=== PATIENT | male | born 1955 | race Caucasian/White ===

== ENCOUNTER 2016-06-28 12:38 | Day surgery (SDC) | payer OTHER ==
[2016-06-28] MEDS ORDERED: ASPIRIN EC 325 MG TAB PO ONE (12:53)
[2016-06-28] MEDS ORDERED: diphenhydrAMINE 25 MG CAP PO ONE (12:53)
[2016-06-28] MEDS ORDERED: NS 1,000 ML IV ONE (12:53)
[2016-06-28] MEDS ORDERED: FAMOTIDINE 20 MG TAB PO ONE (12:53)
[2016-06-28] MEDS ORDERED: DIAZEPAM 5 MG TAB PO ONE (12:53)
--- NOTE | 2016-06-28 13:13 | CPEKG ---
Heart Rate: 79 RR Interval: 759 P-R Interval: 192 QRSD Interval: 96 QT Interval: 396 QTC Interval: 455 P [place]: 48 QRS [place]: 26 T Wave [place]: 52 EKG Severity - NORMAL ECG - EKG Impression: SINUS RHYTHM Electronically Signed By: Marco Antonio Hogan 28-Jun-2016 14:58:14
[2016-06-28 13:38] LABS: % IMMATURE GRANULYOCYTES 0.2 % (0.0-1.1); ABSOLUTE IMMATURE GRANULOCYTES 0.01 10^3/uL (0.00-0.10); ADD DIFF? NO; ADD MORPH? NO; ADD SCAN? NO; ATYPICAL LYMPHOCYTE FLAG 20 (0-99); FRAGMENT RBC FLAG 0 (0-99); HEMATOCRIT 44.7 % (40.0-51.0); HEMOGLOBIN 13.9 g/dL (13.7-17.5); LEFT SHIFT FLG 0 (0-99); LIPEMIA HEMOLYSIS FLAG 80 (0-99); MEAN CELL HEMOGLOBIN 24.1 pg (27.9-34.1); MEAN CELL HEMOGLOBIN CONCENTR. 31.1 g/dL (32.4-36.7); MEAN CELL VOLUME 77.5 fL (81.5-99.8); PLATELET CLUMPS FLAG 0 (0-99); PLATELET COUNT 235 10^3/uL (150-400); RED BLOOD CELL COUNT 5.77 10^6/uL (4.40-6.38)
[2016-06-28 13:45] LABS: PROTIME(PATIENT) 13.1 SEC (12.0-15.0)
[2016-06-28] MEDS ORDERED: MIDAZOLAM 2 MG/2 ML VIAL ONE ×2 (13:47→14:30)
[2016-06-28] MEDS ORDERED: LIDOCAINE 1% 30 ML SDV ONE ×2 (13:47→14:28)
[2016-06-28] MEDS ORDERED: fentaNYL 100 MCG/2 ML INJ ONE ×2 (13:47→14:30)
[2016-06-28] MEDS ORDERED: IOPAMIDOL (ISOVUE-370) 150 ML BTL IV ONE (13:47)
[2016-06-28 13:55] LABS: ANION GAP 10 mEq/L (8-16); CALCIUM 9.1 mg/dL (8.5-10.4); CARBON DIOXIDE 26 mEq/l (22-31); CHLORIDE 103 mEq/L (97-110); CHOLESTEROL 121 mg/dL (140-220); CHOLESTEROL/HDL RATIO 4.65 RATIO (1.00-4.97); GLOMERULAR FILTRATION RATE > 60; GLUCOSE 86 mg/dL (70-100); HIGH DENSITY LIPOPROTEIN 26 mg/dL (40-65); LDL/HDL RATIO 2.46 RATIO (1.00-3.64); LOW DENSITY LIPOPROTEIN 64 mg/dL (80-100); MAGNESIUM 1.9 mg/dL (1.6-2.3); NON-HIGH DENSITY LIPOPROTEIN 95 mg/dL (90-129); SODIUM 139 mEq/L (134-144); TRIGLYCERIDE 158 mg/dL (40-150); VERY LOW DENSITY LIPOPROTEINS 31 mg/dL (8-25)
--- NOTE | 2016-06-28 14:47 | PDDXCAT ---
Diagnostic Cath Note - . Date: 06/28/16 Intervention: None Indication: Progressive dyspnea on exertion with know coronary artery disease on the basis of cardiac catheterization last performed in 2004, r/u pulmonary hypertension. *Procedure 1. selective coronary angiography 2. left heart catheterization 3. left ventriculogram 4. right heart catheterization Access: Right femoral *Materials Left Heart Cath size: 6F Left Heart Cath materials: JR4, JL3.5, pigtail Right Heart Cath size: 7F Right Heart Cath Materials: PWP catheter *Findings-Left Heart Catheterization LM: The left main is ~7 mm in size and bifurcates into an LAD and circumflex system. There is no evidence of flow-limiting disease. LAD: The LAD is ~6 mm in size. There is no evidence of flow-limiting disease with VEL III flow throughout. LCX: The proximal left circumflex is ~5 mm in size. Maximal luminal stenosis is 40% in the proximal left circumflex. There is VEL III flow throughout. RCA: The RCA is dominant (gives rise to PDA and PLV branches) and is ~5.5 mm in size with a Carter's crook deformity. Maximal luminal stenosis of 20% with VEL III flow. Left Ventriculogram: No wall motion abnormalities were identified. The visualized portion of the thoracic aorta revealed three sinuses of Valsalva. There was no evidence of aneurysm or dissection. Ejection Fraction: 55% LVEDP: 13 mmHg *Findings-Right Heart Catheterization RA: 12/11/10 mmHg RV: 35/7/12 mmHg PA: 35/22/29 mmHg PAOP: 11/11/9 mmHg AO: 117/79/85 mmHg AO SAT = 96.1%; PA SAT = 73.7%; IVC SAT = 66.1%; CO: 5.74 L/min CI: 2.2 L/min/m^2 *Summary Complications: None Estimated blood loss: <50ml Closure method: Angioseal Assessment: [place] vessel non-flow limiting coronary artery disease with mild diffuse disease throughout consistent with atherosclerosis. There was normal ejection fraction and no wall motion abnormalities on LVG. Pulmonary artery pressure with expiration was 42 mmHg consistent with mild pulmonary hypertension with elevated right atrial pressure. The patient had snoring and apneic events consistent with obstructive sleep apnea. He should continue CPAP therapy. He should also continue daily Crestor at a dose of 10 mg daily. It is safe for the patient to participate on a routine moderate basis on the basis of this study in 1 week. It is likely the patient's progressive dyspnea is related to excess body weight and weight loss is recommended.
== END 2016-06-28 19:32 | disposition home or self-care (01) ==
LOC: FCATH 12:38
PROVIDERS: ATTEND Internal Medicine Cardiovascular Disease
PROC: B2111ZZ Fluoroscopy of Multiple Coronary Arteries using Low Osmolar Contrast (ICD-10-PCS; principal; 2016-06-28)
PROC: 4A023N8 Measurement of Cardiac Sampling and Pressure, Bilateral, Percutaneous Approach (ICD-10-PCS; principal; 2016-06-28)
PROC: B2151ZZ Fluoroscopy of Left Heart using Low Osmolar Contrast (ICD-10-PCS; principal; 2016-06-28)
DX: R06.02 Shortness of breath (principal); G47.33 Obstructive sleep apnea (adult) (pediatric); E66.01 Morbid (severe) obesity due to excess calories; I25.10 Atherosclerotic heart disease of native coronary artery without angina pectoris; I10 Essential (primary) hypertension; E78.5 Hyperlipidemia, unspecified
CPT/HCPCS: C1760; J1644; J2250; J3010; Q9967

== ENCOUNTER → 2017-01-08 | Outpatient (CLI) | payer OTHER | LOC: FIMAGING 07:40 | PROVIDERS: ATTEND Orthopaedic Surgery | DX: Z01.818 Encounter for other preprocedural examination (principal); M19.011 Primary osteoarthritis, right shoulder; S42.141A Displaced fracture of glenoid cavity of scapula, right shoulder, initial encounter for closed fracture ==

== ENCOUNTER 2017-02-22 14:39 | Emergency (ER) | payer OTHER ==
--- NOTE | 2017-02-22 16:00 | EDPHY ---
H & P Stated Complaint: syncope today at lunch HPI/ROS: CHIEF COMPLAINT: Coughing fit and possible syncopal episode HISTORY OF PRESENT ILLNESS: This patient is an obese 61 year old male with history of hypertension and asthma arriving with his significant other following a "syncopal episode" today around noon. He was eating lunch and began coughing hard. He began to hear a buzzing in his ears, and then drooped forward and became "unresponsive". He did not fall to the ground. Witnesses thought he may be choking, and started to preform the Heimlich maneuver but light touch caused him to become fully awake again. He has had a similar coughing fits which resulted in being out of breath in the past, 3-4 times in the last couple years. He does not recall having lost consciousness before, but he did not feel that he passed out today either. Following his incident today, he called his primary care physician's office and staff recommended he be evaluated at the Emergency Department. Over the last couple years, he has noted increased shortness of breath in general. He denies chest pain, fever, vomiting, diarrhea, or recent illness. He has had his flu shot. He feels well currently, and has no further complaints. REVIEW OF SYSTEMS: A ten point review of systems was performed and is negative with the exception of the items mentioned in the HPI. Past medical history: 1. Obstructive sleep apnea (CPAP with supplemental oxygen) 2. Hypertension (Losartan/ HCTZ) 3. Osteoarthritis (Stem cell injection 2 weeks prior to this visit) 4. Asthma (Advair, Albuterol) 5. Atherosclerosis 6. Hypercholesterolemia (Crestor) Past surgical history: 1. Right total hip replacement 2. Cholecystectomy 3. Lipoma removal 4. Tonsillectomy Family history: Father had CHF, DVT Social history: Lives in [place]. Significant other at bedside. PCP Dr. Lacey. Nonsmoker. Occasional alcohol use. General Appearance: Alert. Vital signs reviewed. Blood pressure 143/84. HR 80s. Eyes: Pupils equal and round, no conjunctival injection, no discharge. Anicteric. ENT, Mouth: Mucous membranes are moist, no oropharyngeal erythema or edema. Neck: No lymphadenopathy, supple. Trachea midline. Respiratory: Lungs are clear to auscultation; no wheezes, rales, or rhonchi. Cardiovascular: Regular rate and rhythm; no murmur, rub, or gallop. Gastrointestinal: Abdomen is obese, soft and nontender, no masses or organomegaly appreciated, bowel sounds normal. Skin: Warm and dry, no rashes on exposed skin, normal color. Back: Nontender to palpation over the thoracolumbar spine. No CVAT. Extremities: 1+ pitting edema mcfp to the knees bilaterally. No calf tenderness or swelling. Neurological: Alert and oriented. Moving all four extremities easily and equally. Psychiatric: Normal affect. - Personal History Tetanus Vaccine Date: <10yrs - Medical/Surgical History Hx Asthma: Yes Hx Chronic Respiratory Disease: No Hx Diabetes: No Hx Cardiac Disease: No Hx Renal Disease: No Hx Cirrhosis: No Hx Alcoholism: No Hx HIV/AIDS: No Hx Splenectomy or Spleen Trauma: No Other PMH: SUNITHA, CPAP, R hip replacement, asthma, stem cell injection R shoulder 2017, HTN, abraham - Social History Smoking Status: Never smoked Constitutional: Initial Vital Signs Temperature (C) 36.7 C 02/22/17 14:43 Respiratory Rate 18 02/22/17 14:43 Blood Pressure 143/84 H 02/22/17 14:43 O2 Sat (%) 92 02/22/17 14:43 O2 Delivery Mode Room Air Allergies/Adverse Reactions: SEASONAL Allergy (Intermediate, Uncoded 08/25/10 17:20) [id number] Home Medications: Medication Instructions Recorded ASPIRIN [Easprin] 324 mg PO BID 08/25/10 DULoxetine [Cymbalta] 60 mg PO BID 08/25/10 Lizardin DAILY 08/25/10 Metoprolol/Hydrochlorothiazide 1 each PO BID 08/25/10 [Metoprolol-Hctz 100-50 Mg Tab] Niacin [Niaspan] 2,000 mg PO DAILY 08/25/10 ROSUVASTATIN CALCIUM [Crestor] 2.5 mg PO DAILY 08/25/10 Nisa Allergy 02/22/17 Androgel 02/22/17 Edarbyclor 40-12.5 mg Tablet 02/22/17 Fexofenadine HCl 02/22/17 Medical Decision Making - Diagnostics EKG Interpretation: 12 lead EKG is interpreted in Trace master View by emergency department physician. Imaging: Discussed imaging studies w/ house calls nurse Radiologist, I viewed and interpreted images myself ED Course/Re-evaluation: 61 year old male presents following an episode of coughing at lunch that resulted in a brief presyncopal or syncopal episode. No trauma. Physical exam reveals 1+ pitting edema to the lower extremities bilaterally, otherwise unremarkable. Plan for EKG. Plan for labs including CBC, BMP, D-dimer, and Troponin. The patient's D-dimer is elevated at 1.41. Plan for CTA chest to assess for PE. Labs otherwise unremarkable. Troponin negative--ACS quite unlikely. 19:[address] Hsieh, radiologist. CTA negative for central PE. There is a stable splenic artery aneurysm. 19:25 Reassessed patient. Discussed imaging results. I feel he likely had a vasovagal syncopal episode triggered by his coughing fit. He will follow up with his primary care physician. I am not recommending further evaluation at this time. Return precautions discussed. He is comfortable with this plan. Differential Diagnosis: Syncope including but not limited to vasovagal syncope, arrhythmia, dehydration , and blood loss. - Data Points Laboratory Results: Laboratory Results 02/22/17 16:50 02/22/17 16:50 Departure - Departure Disposition: Home, Routine, Self-Care Clinical Impression: Vasovagal syncope Condition: Good Instructions: Syncope (ED) Additional Instructions: 1. Follow up with your primary care physician for further evaluation. 2. If he looks like his is about to faint, help him lie down on the floor so he does not fall if he faints. 3. Return to the emergency department for further episodes of fainting, chest pain, shortness of breath, fever, or other worsening of condition. Referrals: Valeriano Lacey MD [Primary Care Provider] - As per Instructions Report Scribed for: Breanna Doty Report Scribed by: Kay Javier Date of Report: 02/22/17 Time of Report: 16:18 Physician Review and Approval Statement: 02/22/17 16:00 Portions of this note were transcribed by the faculty i on call medical assistant. I, Dr. Breanna Doty, personally performed the history, physical exam, and medical decision- making; and confirmed the accuracy of the information in the transcribed note.
--- NOTE | 2017-02-22 16:38 | CPEKG ---
Heart Rate: 157 RR Interval: 382 QRSD Interval: 134 QT Interval: 356 QTC Interval: 576 P [place]: 0 QRS [place]: -153 EKG Severity - ABNORMAL ECG - EKG Impression: This ekg not interpreted. Electronically Signed By: Breanna Doty 22-Feb-2017 23:10:16
[2017-02-22 16:58] LABS: ADD DIFF? NO; ADD MORPH? NO; ADD SCAN? NO; ATYPICAL LYMPHOCYTE FLAG 30 (0-99); FRAGMENT RBC FLAG 0 (0-99); HEMATOCRIT 42.9 % (40.0-51.0); HEMOGLOBIN 14.1 g/dL (13.7-17.5); LEFT SHIFT FLG 0 (0-99); LIPEMIA HEMOLYSIS FLAG 80 (0-99); MEAN CELL HEMOGLOBIN 25.6 pg (27.9-34.1); MEAN CELL HEMOGLOBIN CONCENTR. 32.9 g/dL (32.4-36.7); MEAN CELL VOLUME 77.9 fL (81.5-99.8); PLATELET CLUMPS FLAG 0 (0-99); PLATELET COUNT 234 10^3/uL (150-400); RED BLOOD CELL COUNT 5.51 10^6/uL (4.40-6.38); RED CELL DISTRIBUTION WIDTH 17.5 % (11.5-15.2)
[2017-02-22 17:14] LABS: ANION GAP 11 mEq/L (8-16); CALCIUM 8.9 mg/dL (8.5-10.4); CARBON DIOXIDE 25 mEq/l (22-31); CHLORIDE 103 mEq/L (97-110); CREATININE 0.9 mg/dL (0.7-1.3); GLOMERULAR FILTRATION RATE > 60; GLUCOSE 95 mg/dL (70-100); POTASSIUM 3.7 mEq/L (3.5-5.2); SODIUM 139 mEq/L (134-144)
[2017-02-22 17:25] LABS: TROPONIN I < 0.012 ng/mL (0.000-0.034)
[2017-02-22] MEDS ORDERED: IOPAMIDOL (ISOVUE 370) 100 ML BTL IV ONE (18:27)
[2017-02-22 19:42] VITALS: BP 134/97; PULSE 78; RESP 16; TEMP 98.2; O2SAT 91
--- NOTE | 2017-02-25 16:55 | CPEKG ---
Heart Rate: 80 RR Interval: 750 P-R Interval: 192 QRSD Interval: 94 QT Interval: 400 QTC Interval: 462 P [place]: 26 QRS [place]: -18 T Wave [place]: 38 EKG Severity - OTHERWISE NORMAL ECG - EKG Impression: SINUS RHYTHM EKG Impression: No significant change from February 22, 2017, 16:36 Electronically Signed By: Patrick Munguia 01-Mar-2017 11:07:50
== END 2017-02-22 19:43 | disposition home or self-care (01) ==
DX: R55 Syncope and collapse (principal); I10 Essential (primary) hypertension; J45.909 Unspecified asthma, uncomplicated; Z79.82 Long term (current) use of aspirin
CPT/HCPCS: Q9967